=== PATIENT | female | born 1945 | race African-American/Black ===

== ENCOUNTER 2021-05-10 08:00 | Inpatient (IN) | payer OTHER ==
[2021-05-06 12:42] VITALS: BMI 27.1
[2021-05-10] MEDS ORDERED: LIDOCAINE HCL/PF 2% SDV 5ML VIAL ONE (08:52)
[2021-05-10] MEDS ORDERED: ceFAZolin SODIUM 1 GM VIAL ONE ×3 (08:52→20:27)
[2021-05-10] MEDS ORDERED: PROPOFOL 20 ML ONE ×2 (08:53)
[2021-05-10] MEDS ORDERED: CELECOXIB 200 MG CAPSULE PO ONE ×2 (09:50→10:30)
[2021-05-10] MEDS ORDERED: BUPIVACAINE HCL 50 ML ONE (10:28)
[2021-05-10] MEDS ORDERED: TRANEXAMIC ACID 1000 MG/10 ML VIAL IVPUSH ONE (10:30)
[2021-05-10] MEDS ORDERED: CEFAZOLIN 2 GM in DEXTROSE 5%-WATER - 50 ML IVPB ONE (10:30)
[2021-05-10] MEDS ORDERED: VANCOMYCIN 1,000 MG VIAL (RESTRICTED TO ID ONLY) ONE (10:37)
[2021-05-10] MEDS ORDERED: MIDAZOLAM HCL 2 MG/2 ML SINGLE DOSE VIAL ONE ×2 (10:45→10:46)
[2021-05-10] MEDS ORDERED: BUPIVACAINE HCL/PF 0.5% (5 MG/ML) 30 ML VIAL IJ ONE (10:45)
[2021-05-10] MEDS ORDERED: DEXAMETHASONE SOD PHOSPHATE 10 MG/1 ML VIAL ONE (10:46)
[2021-05-10] MEDS ORDERED: ONDANSETRON 4 MG/2 ML VIAL IVPUSH PRN ×2 (11:21→13:18)
[2021-05-10] MEDS ORDERED: MAG HYDROX/AL HYDROX/SIMETH 30 ML UNIT-DOSE CUP PO PRN (11:21)
[2021-05-10] MEDS ORDERED: MAGNESIUM HYDROX 2400MG/30ML ORAL SUSPENSION 30 ML CUP PO PRN (11:21)
[2021-05-10] MEDS ORDERED: LACTATED RINGERS SOLUTION 1,000 ML IV SCH ×2 (11:30→13:30)
[2021-05-10] MEDS ORDERED: VANCOMYCIN 1,000 MG VIAL (RESTRICTED TO ID ONLY) IVPB ONE (12:40)
[2021-05-10] MEDS ORDERED: TRANEXAMIC ACID 1000 MG/10 ML VIAL ONE (12:41)
[2021-05-10] MEDS ORDERED: oxyCODONE HCL 5 MG TABLET PO PRN (13:18)
[2021-05-10] MEDS: ACETAMINOPHEN 1000 MG/100 ML VIAL IVPB ONE ×2 (13:30→19:51)
[2021-05-10] MEDS: oxyCODONE HCL 5 MG TABLET PO PRN (16:46)
[2021-05-10] MEDS ORDERED: KETOROLAC TROMETHAMINE 15 MG/ML VIAL IVPUSH PRN (17:55)
[2021-05-10] MEDS ORDERED: DEXTROSE 5%-WATER - 50 ML IVPB ONE (20:28)
[2021-05-10] MEDS: CEFAZOLIN 2 GM in DEXTROSE 5%-WATER - 50 ML IVPB SCH (20:37)
[2021-05-10] MEDS: metoPROLOL SUCCINATE 25 MG TAB.SR.24H (FP) PO SCH (21:36)
[2021-05-10] MEDS: ACETAMINOPHEN 500 MG TABLET (FP) PO SCH (21:36)
[2021-05-10] MEDS: oxyCODONE HCL 10 MG SUSTAINED ACTING TABLET PO SCH (21:37)
[2021-05-10] MEDS: BUDESONIDE/FORMETEROL FUMARATE 80/4.5 mcg INHALER IH SCH (21:37)
[2021-05-10] MEDS: SENNOSIDES/DOCUSATE COMBO (SENNA PLUS) TABLET (UD) PO SCH (21:37)
[2021-05-11] MEDS ORDERED: ceFAZolin SODIUM 1 GM VIAL ONE (04:12)
[2021-05-11] MEDS ORDERED: DEXTROSE 5%-WATER - 50 ML IVPB ONE (04:12)
[2021-05-11] MEDS: ACETAMINOPHEN 500 MG TABLET (FP) PO SCH ×4 (04:56→21:19)
[2021-05-11] MEDS: CEFAZOLIN 2 GM in DEXTROSE 5%-WATER - 50 ML IVPB SCH (04:59)
[2021-05-11 07:25] LABS: HEMATOCRIT 36.5 % (32.4-45.2); HEMOGLOBIN 11.8 GM/dl (10.7-15.3); MCH 29.3 pg (25.7-33.7); MCHC 32.4 g/dl (32.0-36.0); MEAN CELL VOLUME 90.3 fl (80-96); MEAN PLT VOLUME 7.3 fl (7.5-11.1); PLATELET COUNT 222 10^3/uL (134-434); RBC 4.04 M/mm3 (3.60-5.2); RDW 13.9 % (11.6-15.6); WHITE BLOOD COUNT 6.9 K/mm3 (4.0-10.8)
[2021-05-11] MEDS: metoPROLOL SUCCINATE 25 MG TAB.SR.24H (FP) PO SCH ×2 (10:17→21:20)
[2021-05-11] MEDS: PANTOPRAZOLE 40 MG TABLET PO SCH (10:18)
[2021-05-11] MEDS: SENNOSIDES/DOCUSATE COMBO (SENNA PLUS) TABLET (UD) PO SCH ×2 (10:18→21:20)
[2021-05-11] MEDS: MULTIVITAMINS (DAILY MVI) TABLET (FP) PO SCH (10:18)
[2021-05-11] MEDS: ASPIRIN 325 MG TABLET PO SCH (10:18)
[2021-05-11] MEDS: amLODIPine BESYLATE 5 MG TABLET (FP) PO SCH (10:19)
[2021-05-11] MEDS: oxyCODONE HCL 10 MG SUSTAINED ACTING TABLET PO SCH ×2 (10:19→21:20)
[2021-05-11] MEDS: BUDESONIDE/FORMETEROL FUMARATE 80/4.5 mcg INHALER IH SCH ×2 (10:24→21:21)
[2021-05-12] MEDS: ACETAMINOPHEN 500 MG TABLET (FP) PO SCH ×3 (02:27→14:40)
[2021-05-12 08:26] LABS: HEMATOCRIT 35.2 % (32.4-45.2); HEMOGLOBIN 11.7 GM/dl (10.7-15.3); MCHC 33.3 g/dl (32.0-36.0); MEAN PLT VOLUME 7.7 fl (7.5-11.1); PLATELET COUNT 199 10^3/uL (134-434); RDW 14.1 % (11.6-15.6); WHITE BLOOD COUNT 6.4 K/mm3 (4.0-10.8)
[2021-05-12] MEDS: oxyCODONE HCL 10 MG SUSTAINED ACTING TABLET PO SCH (10:16)
[2021-05-12] MEDS: ASPIRIN 325 MG TABLET PO SCH (10:16)
[2021-05-12] MEDS: amLODIPine BESYLATE 5 MG TABLET (FP) PO SCH (10:16)
[2021-05-12] MEDS: PANTOPRAZOLE 40 MG TABLET PO SCH (10:17)
[2021-05-12] MEDS: SENNOSIDES/DOCUSATE COMBO (SENNA PLUS) TABLET (UD) PO SCH (10:17)
[2021-05-12] MEDS: MULTIVITAMINS (DAILY MVI) TABLET (FP) PO SCH (10:18)
[2021-05-12] MEDS: metoPROLOL SUCCINATE 25 MG TAB.SR.24H (FP) PO SCH (10:18)
[2021-05-12] MEDS: BUDESONIDE/FORMETEROL FUMARATE 80/4.5 mcg INHALER IH SCH (10:19)
[2021-05-12 13:53] VITALS: BP 123/66; PULSE 68; TEMP 985
[2021-05-12] MEDS: oxyCODONE HCL 5 MG TABLET PO PRN (16:04)
== END 2021-05-12 18:18 | DRG 470 ==
LOC: FM/S 08:15
PROVIDERS: ADMIT Orthopaedic Surgery; ATTEND Orthopaedic Surgery
PROC: 8E0Y0CZ Robotic Assisted Procedure of Lower Extremity, Open Approach (ICD-10-PCS; 2021-05-10)
PROC: 0SRB0JA Replacement of Left Hip Joint with Synthetic Substitute, Uncemented, Open Approach (ICD-10-PCS; principal; 2021-05-10 11:54)
DX: M16.12 Unilateral primary osteoarthritis, left hip (principal)
CPT/HCPCS: 36415; 73502-TC-LT-FY; 85027; 94010; 94760; 97010-GP; 97116-GP; 97163-GP; J0131; J1100